=== PATIENT | female | born 1985 | race Caucasian/White ===

== ENCOUNTER 2018-02-02 13:23 | Inpatient (IN) | payer SELFPAY ==
[2018-02-02] MEDS ORDERED: OLIVE OIL 118 ML BTL MISC PRN (14:21)
[2018-02-02] MEDS ORDERED: OXYTOCIN/RINGERS LACTATE 1,000 ML IV PRN (14:21)
[2018-02-02] MEDS ORDERED: LR 1,000 ML IV PRN (14:21)
[2018-02-02] MEDS ORDERED: IBUPROFEN 600 MG TAB PO PRN (14:21)
[2018-02-02] MEDS ORDERED: EPSOM SALT 454 GM TP PRN (14:21)
[2018-02-02] MEDS ORDERED: LR 500 ML IV PRN (14:21)
[2018-02-02] MEDS ORDERED: AMMONIA AROMATIC 1 EACH AMP IH PRN (14:21)
[2018-02-02] MEDS ORDERED: MISOPROSTOL 200 MCG TAB PO PRN (14:21)
[2018-02-02] MEDS ORDERED: LIDOCAINE 1% 300 MG/30 ML SDV SC PRN (14:21)
[2018-02-02] MEDS ORDERED: TERBUTALINE SULFATE 1 MG/ML VIAL IV PRN (14:21)
[2018-02-02] MEDS ORDERED: OXYTOCIN/RINGERS LACTATE 500 ML IV SCH (14:30)
[2018-02-02 14:40] LABS: PLATELET COUNT 172 10^3/uL (150-400)
--- NOTE | 2018-02-02 14:42 | PDGENHP ---
History and Physical History and Physical: Care: [facility] HPI: Pt reports SROM at approx 2 am this morning. Clear fluid. Baby moving well. Started having contractions that were getting closer and stronger prior to arrival to L & D. Now occasional. Does desire attempting a . Reviewed all risks vs benefits. Patient is a 32 yo G 3 P 1 @ 39.5 weeks that presents to L&D with complaints of PROM, minimal contractions at this time EDC: 02/04/2018 which is based on LMP: 04/29/2017 which is known and consistent with Ultrasound at 18 weeks. Her is complicated by: anemia - Review of Systems: Constitutional: Denies any fever, chills, or fatigue HEENT: denies any visual changes, difficulty swallowing, hearing loss Cardiovascular: Denies any chest pain, palpitations, leg swelling Respiratory: denies any cough, wheezing, or shortness of breathe GI: Denies any nausea, vomiting, diarrhea, constipation : denies any dysuria, urgency, frequency, vaginal bleeding Musculoskeletal: denies any muscle or bone pain Skin: denies any rashes Neuro: denies any headache, seizures, lightheadedness, dizziness, or loss of consciousness Psychiatric: denies any depression, anxiety, or SI/HI thoughts HISTORY: Previous RELIABILITY TECHNICIAN history: 2016 primary low transverse csection for failure to descent. Confirmed with surgical report. Pushed for 4 hours. 8 lbs 14 oz. 2006 TAB - no complications 2008 LEEP- all paps normal since that time Past medical history: Pyelonephritis 4 times; last occurrence over 7 years ago, [place] - tick bite in 2017 treated with antibiotics, h/o migraines Past surgical history: 2013 - micrdiscectomy, 2016- csection Social: Denies any alcohol, tobacco, or drug use. Family history: Not relevant Medications: PNV Allergies (list reaction): Sulfa LABS: Rh: A+ ABS: Neg Rubella: Immune HbsAg: NR HIV: NR VDRL: NR 1hr: 96 GC: Neg Chlamydia: Neg Pap: Normal 07/19 GBS: Negative BMI: (prepreg) 22 - +42 pound weight gain this PHYSICAL EXAM: Constitutional: WN, A&Ox3 HEENT: normocephalic atraumatic, supple Skin: Warm, dry, intact Heart: RRR, no murmur Chest: CTA-B Abdomen: Soft, nontender, gravid SVE: deferred due to SROM. Exam last week /2. Ultrasound confirmed vertex Extremities:neg edema, negative homans sign Neuro: grossly normal Psych: normal affect assessment: FHT baseline 125 +accels, no decels, moderate variability Contractions: toco q irregular Assessment: 1) 32 yo G 3 P 1 with IUP@ 39.5; TOLAC 2) PROM - no labor 3) GBS negative 4) Cat 1 FHR tracing Plan: 1) Admit to L&D 2) Reviewed with Dr Holley. POC to start low dose pitocin augmentation. 3) Continuous monitoring for pitocin as well as TOLAC 4) Follow TOLAC policy. Physician and anesthesia will be advised when patient becomes active to be in house.
--- NOTE | 2018-02-02 16:39 | OBPROG ---
Labor Progress Note Assessment/Plan: Assessment: Active labor; category 1 strip Plan: 02/02/18 16:37 1) Dr Holley notified of status and active labor. Both she and anesthesia are readily available on campus. 2) Epidural now 3) Consider AROM once comfortable 4) Will labor down as much as possible before actively pushing Subjective/Intrapartum Course: 02/02/18 16:36 Breathing and moaning through contractions. Requesting epidural Objective: 02/02/18 14:00 Patient ABO/Rh A POSITIVE 02/02/18 14:00 FHT baseline 120 to 130; mod danette; + accels; no decels. UC's q 2 minutes on 2 mu /hr pitocin. VE 6/100/-2; BBOW - SVE Dilation (cm): 6 Effacement (%): 100 Station: -2 Membranes: SROM (BBOW ) Amniotic Fluid Color: Clear - Contraction Pattern Assessment Current Contraction Pattern: Regular Oxytocin Orders Assessment - Pre-Induction/Augmentation Assessment Gestational Age: 39 week(s) and 5 day(s) ICD10 Worksheet Patient Problems: Problems Problem Status Onset Acute Previous section Acute - ICD10 Problem Qualifiers (1) Qualifiers: Weeks of gestation: 40 weeks Qualified Code(s): Z3A.40 - 40 weeks gestation of (2) Previous section
[2018-02-02] MEDS ORDERED: OXYTOCIN 10 UNIT/ML VIAL ONE (16:50)
[2018-02-02] MEDS ORDERED: fentaNYL 2MCG/ML/BUP 0.1% RTU 100 ML BAG EP ONE (16:59)
[2018-02-02] MEDS ORDERED: PHENYLEPHRINE HCL 100 MCG/ML SYR ONE (16:59)
[2018-02-02] MEDS ORDERED: BUPIVACAINE 0.25% 30 ML SDV ONE (16:59)
[2018-02-02] MEDS ORDERED: fentaNYL 100 MCG/2 ML INJ ONE (17:00)
[2018-02-02] MEDS ORDERED: ONDANSETRON 4 MG/2 ML VIAL IVP PRN (17:55)
[2018-02-02] MEDS ORDERED: PHENYLEPHRINE HCL 100 MCG/ML SYR IVP PRN (17:55)
[2018-02-02] MEDS ORDERED: LR 500 ML IV SCH (18:00)
[2018-02-02] MEDS ORDERED: fentaNYL 2MCG/ML/BUP 0.1% RTU 100 ML EP SCH (18:00)
--- NOTE | 2018-02-02 18:06 | PREANESOB ---
Obstetric Pre-Anesthesia Info - General Info Proposed Procedure: Labor and delivery aftyer previous C Section. : 3 Para: 1 MAIN: 02/04/18 Gestational Age: 39 week(s) and 5 day(s) - Info Status: Full Term Monitors: External FHR Baseline (bpm): 135 FHR Pattern: Reassuring - Labor Status Cervical Dilation per last OB SVE: 6 Station per last OB SVE: -2 Amniotic Fluid Color: Clear Pitocin: In Use Indications for Labor Analgesia: Induction of Labor, Pain Control, Possible Labor Epidural: Proposed Anesthesia ROS: Prior epidural for labor and C Section and general anesthesia for discectomy. Allergies/Adverse Reactions: Allergy/AdvReac Type Severity Reaction Status Date / Time Sulfa (Sulfonamide Allergy Intermediate Hives Verified 02/02/18 14:21 Antibiotics) Home Medications: Medication Instructions Recorded Docosahexanoic Acid [Dha] 100 mg PO 02/02/18 Iron,Carbonyl [Iron Chews] 15 mg PO 02/02/18 Vit27&Calcium/Iron/FA 02/02/18 [] Visit Medications: Generic Name Dose Route Start Last Admin Trade Name Freq PRN Reason Stop Dose Admin Ammonia (Aromatic Spirit) 1 each 02/02/18 14:21 Ammonia Aromatic IH 02/12/18 14:20 ONCE PRN Fainting Diphenhydramine HCl 25 - 50 mg 02/02/18 17:55 Benadryl Injection IVP 08/01/18 17:54 Q6HRS PRN Itching Lactated Ringer's 1,000 mls @ 0 mls/hr 02/02/18 14:21 02/02/18 15:25 Lr IV 02/03/18 14:20 1,000 mls PRN PRN Administration SEE PROTOCOL CONDITIONS Protocol Per Protocol Lactated Ringer's 500 mls @ 500 mls/hr 02/02/18 14:21 Lr IV 02/03/18 14:21 PRN PRN Maternal Hypotension Oxytocin/Lactated Ringer's 1,000 mls @ 0 mls/hr 02/02/18 14:21 Pitocin 20 Units/Lr (Premix) IV PRN PRN Post bleeding As Directed Oxytocin/Lactated Ringer's 500 mls @ 0 mls/hr 02/02/18 14:30 02/02/18 15:25 Pitocin 30 Units/Lr (Premix) IV 08/01/18 14:29 500 mls CONT KELLY Administration Protocol Per Protocol Fentanyl/Bupivacaine HCl 100 mls @ 0 mls/hr 02/02/18 18:00 Fentanyl/Bupivacaine/Ns 2 Mcg/Ml 0.1% (Premix EP 02/12/18 17:59 CONT KELLY Protocol As Directed Lactated Ringer's 500 mls @ 0 mls/hr 02/02/18 18:00 Lr IV 08/01/18 17:59 CONT KELLY As Directed Ibuprofen 600 mg 02/02/18 14:21 Motrin PO ONCE PRN post , pain Lidocaine HCl 300 mg 02/02/18 14:21 Lidocaine Hcl 1% SC 08/01/18 14:20 ONCE PRN episiotomy Magnesium Sulfate 454 gm 02/02/18 14:21 Epsom Salt TP 08/01/18 14:20 Q1H PRN perineal discomfort Misoprostol 800 - 1,000 mcg 02/02/18 14:21 Cytotec PO 08/01/18 14:20 ONCE PRN Vaginal Atony/Bleeding [place] Oil 118 ml 02/02/18 14:21 Sweet Oil MISC 08/01/18 14:20 ONCE PRN perineal massage Ondansetron HCl 4 mg 02/02/18 17:55 Zofran IVP 02/03/18 17:54 Q4HRS PRN Nausea/Vomiting, Can't Take PO Phenylephrine HCl 100 mcg 02/02/18 17:55 Neosynephrine IVP 08/01/18 17:54 .Q2M PRN Hypotension Terbutaline Sulfate 0.25 mg 02/02/18 14:21 Brethine IV 08/01/18 14:20 ONCE PRN Tachysystole Discontinued Medications Generic Name Dose Route Start Last Admin Trade Name Freq PRN Reason Stop Dose Admin Bupivacaine HCl Confirm 02/02/18 16:59 Sensorcaine 0.25% Sdv Administered 02/02/18 17:00 Dose 30 ml .ROUTE .STK-MED ONE Fentanyl Confirm 02/02/18 17:00 Sublimaze Administered 02/02/18 17:01 Dose 100 mcg .ROUTE .STK-MED ONE Fentanyl/Bupivacaine HCl Confirm 02/02/18 16:59 Fentanyl/Bupivacaine/Ns 2 Mcg/Ml 0.1% (Premix Administered 02/02/18 17:00 Dose 100 ml EP .STK-MED ONE Oxytocin Confirm 02/02/18 16:50 Pitocin Administered 02/02/18 16:51 Dose 30 unit .ROUTE .STK-MED ONE Phenylephrine HCl Confirm 02/02/18 16:59 Neosynephrine Administered 02/02/18 17:00 Dose 1,000 mcg .ROUTE .STK-MED ONE - Anesthesia History Response to Local Anesthetics: Normal Anesthesia & Operative History: No Prior Problems Family Anesthesia History: Negative - Social History Substance Use/Abuse: Denies - Vital Signs Blood Pressure: 117/67 Heart Rate: 85 Height/Weight (Nursing): Height 167.64 cm Weight 82.554 kg - Focused Exam Neck exam: FROM Mallampati Score: Class 1 Mouth exam: normal dental/mouth exam Pulmonary: no respiratory distress Cardiovascular: regular rate and rhythym Labs: 02/02/18 14:00 Patient ABO/Rh A POSITIVE 02/02/18 14:00 - Plan Anesthetic Plan: CSE Consent Signed and on Chart: Yes Patient/Guardian Understands and Agrees to Plan: Yes Urgent/Emergent Case: Lester simon completed preop but documented later for safe timely pt care
--- NOTE | 2018-02-02 18:14 | POSTANESTH ---
Post Anesthetic Evaluation Cardiovascular Status: Normal, Stable, Similar to Pre-Op Cond Respiratory Status: Normal, Stable, Similar to Pre-op Cond. Level of Consciousness/Mental Status: Can Participate in Eval, Alert and Oriented Pain Control: Adequate, Prn Tx Ordered Nausea/Vomiting Control: Adequate, Prn Tx Ordered Complications Possibly Related to Anesthesia: None Noted
--- NOTE | 2018-02-02 18:16 | OBPROG ---
Labor Progress Note Assessment/Plan: Assessment: Active labor; category 1 strip Complete; comfortable with epidural; category 1 strip. Plan: 02/02/18 16:37 1) Dr Holley notified of status and active labor. Both she and anesthesia are readily available on campus. 2) Epidural now 3) Consider AROM once comfortable 4) Will labor down as much as possible before actively pushing 02/02/18 18:16 Dr Holley was notified of variable decels prior to epidural and is on the unit. Will labor down for the next hour, use peanut ball and change position frequently. Pt advised to let us know if she begins feeling pressure or pain. Reassess in 1 hour. Subjective/Intrapartum Course: 02/02/18 16:36 Breathing and moaning through contractions. Requesting epidural 02/02/18 18:11 Pt now comfortable with epidural in place. Was having back to back contractions without pitocin augmentation, and having a very difficult time coping. Also began having a UTP at the top of the contraction. Denies feeling pressure at this time. Very happy to have epidural. Objective: 02/02/18 14:00 Patient ABO/Rh A POSITIVE 02/02/18 14:00 VE Complete; very large BBOW. In between contractions, AROM'd forebag. Copious amounts of clear fluid returned. Vertex quickly descended to a +1 station. No caput or molding noted. FHT baseline 130; min to mod danette; + accels. Did have a couple of contractions prior to epidural placement where variables were noted. Pt was holding her breathe with contraction. - SVE Dilation (cm): 10 Membranes: AROM (Forebag ruptured. Copious amounts of clear fluid returned), SROM (BBOW ) Amniotic Fluid Color: Clear - Contraction Pattern Assessment Current Contraction Pattern: Regular - FHR Assessment [place] FHR (bpm): 130 FHR Pattern Variability: Minimal, Moderate FHR Category: 1 - Procedures Non-surgical Procedures: Amniotomy Oxytocin Orders Assessment - Pre-Induction/Augmentation Assessment Gestational Age: 39 week(s) and 5 day(s) ICD10 Worksheet Patient Problems: Problems Problem Status Onset Acute Previous section Acute - ICD10 Problem Qualifiers (1) Qualifiers: Weeks of gestation: 40 weeks Qualified Code(s): Z3A.40 - 40 weeks gestation of (2) Previous section
[2018-02-02] MEDS ORDERED: HYDROCORTISONE 0.5% CREAM TP PRN (20:36)
[2018-02-02] MEDS ORDERED: DOCUSATE SODIUM 100 MG CAP PO PRN (20:36)
--- NOTE | 2018-02-02 20:41 | OBDEL ---
Info Type: Vaginal (Successful ) Presentation at Delivery: Vertex L&D Analgesia/Anesthesia Type: Epidural, Local GBS+: No Intrapartum Medications: Generic Name Dose Route Start Last Admin Trade Name Freq PRN Reason Stop Dose Admin Lactated Ringer's 1,000 mls @ 0 mls/hr 02/02/18 14:21 02/02/18 15:25 Lr IV 02/03/18 14:20 1,000 mls PRN PRN Administration SEE PROTOCOL CONDITIONS Protocol Per Protocol Oxytocin/Lactated Ringer's 500 mls @ 0 mls/hr 02/02/18 14:30 02/02/18 15:25 Pitocin 30 Units/Lr (Premix) IV 08/01/18 14:29 500 mls CONT KELLY Administration Protocol Per Protocol Discontinued Medications Generic Name Dose Route Start Last Admin Trade Name Freq PRN Reason Stop Dose Admin Ibuprofen 600 mg 02/02/18 14:21 02/02/18 20:28 Motrin PO 600 mg ONCE PRN Administration post , pain - Hospital Course Intrapartum: 02/02/18 16:36 Breathing and moaning through contractions. Requesting epidural 02/02/18 18:11 Pt now comfortable with epidural in place. Was having back to back contractions without pitocin augmentation, and having a very difficult time coping. Also began having a UTP at the top of the contraction. Denies feeling pressure at this time. Very happy to have epidural. Indications for Delivery: SROM (augmented briefly with pitocin up to 2 mu/hr. Discontinued with tachysystole ) Vaginal Delivery - Delivery Provider Delivery Physician/CNM: Steffanie Mcpherson - Labor and Delivery Onset of Contractions Date: 02/02/18 Onset of Contractions Time: 13:30 Onset of Contractions Type: Augmented (Pitocin up to 2 mu/hr briefly before contractions started back to back. Immediately dc'd and did not have to be restarted.) Rupture of Membranes Date: 02/02/18 Rupture of Membranes Time: 02:00 Rupture of Membranes Type: Artificial (high leak; BBOW forebag AROM'd) Amniotic Fluid Color: Clear Dilation Complete Date: 02/02/18 Dilation Complete Time: 17:57 Placenta Delivery Date: 02/02/18 Placenta Delivery Time: 19:29 Total Hours of Labor: 5 Non-surgical Procedures: Amniotomy Laceration: 2nd Degree (perineal laceration as well as bilateral labial laceration. Very swollen tissues.) Repair: 3-0, 4-0, Vicryl Vaginal Sponge Count Correct: Yes Vaginal Needle Count Correct: Yes Vaginal Sweep Performed: Yes EBL: 200 Delivery Events: None Delivery Comment: Dad helped catch the baby; successful - Medications Labor Augmentation/Induction Methods Used: Pitocin Labor Augmentation/Induction Indication: Other (Specify) (PROM) Data MAIN: 02/04/18 Gestational Age: 39 week(s) and 5 day(s) [place] Delivery Date: 02/02/18 Delivery Time: 19:17 Sex of Infant: Female Score (1 Min): 8 Score (5 Min): 9 ICD10 Worksheet Patient Problems: Problems Problem Status Onset Acute Previous section Acute , delivered Acute - ICD10 Problem Qualifiers (1) Qualifiers: Weeks of gestation: 40 weeks Qualified Code(s): Z3A.40 - 40 weeks gestation of (2) Previous section (3) , delivered
[2018-02-03] MEDS: ACETAMINOPHEN 325 MG TAB PO SCH ×5 (00:27→18:37)
[2018-02-03] MEDS: IBUPROFEN 600 MG TAB PO SCH ×3 (02:56→15:47)
[2018-02-03 09:45] VITALS: BP 114/65
--- NOTE | 2018-02-03 11:44 | OBPP ---
Progress Note Assessment/Plan: Assessment: [id number] s/p PPD#1 anemia Plan: Routine PP care ambulate cont Iron QD support PRN anticipate d/c home tonight Subjective/ Course: 02/03/18 15:19 Pt doing well, she reports min bleeding and pain. States she is a little sore, but improved with ibuprofen. She is without difficulty. She is ambulating and voiding without difficulty. She desires d/c home today. Objective: 02/02/18 14:00 Patient ABO/Rh A POSITIVE 02/02/18 14:00 Temp Pulse Resp BP Pulse Ox 36.3 C 73 16 114/65 95 02/03/18 08:00 02/03/18 08:00 02/03/18 08:00 02/03/18 08:00 02/03/18 08:00 Uterine Position/Fundal Height: Umbilicus -1, Displaced to Left Uterine Tone: Firm Physical Exam - Physical Exam General Appearance: WD/WN, alert, no apparent distress Respiratory: lungs clear Abdomen: non-tender, soft Skin: normal color, warm/dry Neuro/Psych: alert, normal mood/affect, oriented x 3
[2018-02-03] MEDS ORDERED: FERROUS SULFATE 325 MG TAB PO SCH (11:45)
--- NOTE | 2018-02-03 15:23 | OBGCSDC ---
General Delivery Information - General Info : 3 Para: 2 Abortions: 1 Type: Vaginal (Successful ) L&D Analgesia/Anesthesia Type: Epidural, Local Admission Date: 02/02/18 Labs: Patient ABO/Rh A POSITIVE 02/02/18 14:00 Hct 34.6 % (38.0-47.0) L 02/02/18 14:00 - Hospital Course Intrapartum: 02/02/18 16:36 Breathing and moaning through contractions. Requesting epidural 02/02/18 18:11 Pt now comfortable with epidural in place. Was having back to back contractions without pitocin augmentation, and having a very difficult time coping. Also began having a UTP at the top of the contraction. Denies feeling pressure at this time. Very happy to have epidural. : 02/03/18 15:21 S) Pt doing well, reports min pain and bleeding. she is ambulating and voiding without difficulty. She is . She desires discharge home today. O) VSS, afebrile constitutional: WNF, A&Ox3 HEENT: normocephalic, atraumatic, supple Heart: RRR, No murmur Chest: CTA-B Breasts: soft, nontender, not engorged, nipples normal, no redness Abdomen: Soft, nontender Uterus: Firm at U-2, slightly deviated to left Lochia: Minimal rubra Perineum: Intact, healing well Extremities: Trace edema, and negative Rob's sign Neuro: Grossly normal A) 32-year-old S/P PPD#1 P) Discharge home tonight Continue Pelvic rest x6wks Discussed danger signs (infection, preeclampsia, depression, heavy bleeding, etc ) RTO in 2/4/6 weeks Vaginal - Delivery Provider Delivery Physician/CNM: Steffanie Mcpherson - Diagnosis Labor: Augmented (Pitocin up to 2 mu/hr briefly before contractions started back to back. Immediately dc'd and did not have to be restarted.) Rupture of Membranes Type: Artificial (high leak; BBOW forebag AROM'd) Amniotic Fluid Color: Clear Laceration: 2nd Degree (perineal laceration as well as bilateral labial laceration. Very swollen tissues.) Repair: 3-0, 4-0, Vicryl Delivery Events: None - Procedures Non-surgical Procedures: Amniotomy - Delivery Non-surgical Procedures: Amniotomy EBL: 200 [place] Data MAIN: 02/04/18 Gestational Age: 39 week(s) and 6 day(s) [place] Delivery Date: 02/02/18 Delivery Time: 19:17 Sex of : Female Weight (gm): 3878 kg Score (1 Min): 8 Score (5 Min): 9 Discharge Information - Discharge Information Condition: Good Instruction/Follow Up: Two Weeks, Four Weeks, Six Weeks
== END 2018-02-03 20:00 | disposition home or self-care (01) | DRG 807 ==
LOC: FLD 13:23 → FOB 21:55
PROVIDERS: ADMIT Advanced Practice Midwife; ATTEND Advanced Practice Midwife
PROC: 10E0XZZ Delivery of Products of Conception, External Approach (ICD-10-PCS; principal; 2018-02-02)
PROC: 10907ZC Drainage of Amniotic Fluid, Therapeutic from Products of Conception, Via Natural or Artificial Opening (ICD-10-PCS; principal; 2018-02-02)
PROC: 0KQM0ZZ Repair Perineum Muscle, Open Approach (ICD-10-PCS; principal; 2018-02-02)
DX: O42.02 Full-term premature rupture of membranes, onset of labor within 24 hours of rupture (principal); O70.1 Second degree perineal laceration during delivery; O99.02 Anemia complicating childbirth; O34.219 Maternal care for unspecified type scar from previous cesarean delivery; D64.9 Anemia, unspecified; Z37.0 Single live birth; Z3A.39 39 weeks gestation of pregnancy; Z23 Encounter for immunization
CPT/HCPCS: G0008; J2370; J2590; J3010